=== PATIENT | male | born 1950 | race Caucasian/White ===

== ENCOUNTER 2017-08-31 11:56 | Inpatient (IN) | payer MEDICARE ==
[~2017-08-31 11:56] MED LIST: Lidocaine 1% PF 5 ML VIAL ONE; PHENYLEPHRINE-NS 100 MCG/ML 10 ML SYRINGE ONE; PROPOFOL 200 MG/20 ML VIAL ONE
[2017-08-31 12:43] LABS: #Basophils 0.1 thou/uL (0.0-0.2); #Eosinphils 0.1 thou/uL (0.0-0.7); #Lymphocytes 1.3 thou/uL (1.20-3.40); #Monocytes 0.8 thou/uL (0.11-0.59); #Neutrophils 11.5 thou/uL (1.40-6.50); %Basophils 0.5 % (0.0-1.0); %Eosinophils 0.5 % (0.0-10.0); %Lymphocytes 9.5 % (21.0-51.0); %Monocytes 5.7 % (0.0-10.0); %Neutrophils 83.8 % (42.0-75.0); Mean Corpuscular Hemoglobin 29.2 pg (27.0-31.0); Mean Corpuscular Volume 88.5 fl (80.0-94.0); Mean Platelet Volume 8.3 fL (7.4-10.4); Platelet Count 202 thou/uL (130-400); RBC Distribution Width 12.9 % (11.5-14.5); Red Blood Cell (RBC) Count 5.83 mill/uL (4.70-6.10); White Blood Cell (WBC) Count 13.8 thou/uL (4.8-10.8)
[2017-08-31 13:03] LABS: CRP (Inflammatory) 3.1 mg/dL (= or < 0.5); Uric Acid 6.3 mg/dL (3.5-7.2)
[2017-08-31 13:05] LABS: ALT (SGPT) 15 U/L (8-55); AST (SGOT) 15 U/L (5-34); Albumin 4.2 g/dL (3.4-4.8); Alkaline Phosphatase 100 U/L (40-150); Anion Gap 14 mmol/L (10-20); BUN (Urea Nitrogen) 16 mg/dL (8.4-25.7); Bilirubin, Total 0.7 mg/dL (0.2-1.2); Calc. Creatinine Clearance 0 mL/min (70-130); Calcium 9.8 mg/dL (7.8-10.44); Carbon Dioxide 24 mmol/L (23-31); Chloride 101 mmol/L (98-107); Estimated GFR-MDRD 49; Globulin 3.8 g/dL (2.4-3.5); Glucose 296 mg/dL (80-115); Sodium 136 mmol/L (136-145)
--- NOTE | 2017-08-31 13:11 | RAD ---
FOUR VIEWS RIGHT KNEE: CLINICAL HISTORY: Pain. FINDINGS: There is mild to moderate osteophytosis of the right knee with associated chondrocalcinosis. Patchy sclerosis was seen at the tibial tuberosity. There is mild joint capsular distention at the suprapat ellar bursa. No acute fracture. IMPRESSION: 1. 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 2. Heterogeneous density of the tibial tuberosity with corticated heterotopic densities which may re late to sequelae from prior avulsive injury. Correlate clinically. POS: ISABEL
[2017-08-31 13:12] LABS: Potassium 2.9 mmol/L (3.5-5.1)
[2017-08-31] MEDS ORDERED: Potassium Chloride 20 MEQ TAB ONE (14:25)
[2017-08-31 16:24] LABS: BF Color Red; Body Fluid Source SYNOVIAL FLUID; Clarity Cloudy/Turbid (Clear); RBC Background Count 0.005; RBC Count-Automated 138000 /cumm; Tube # EDTA; WBC Background Count 0.01; WBC/NonHematic-Auto 38600 /cumm
[2017-08-31] MEDS ORDERED: Morphine 4 MG/ML VIAL ONE (16:35)
[2017-08-31] MEDS ORDERED: Ondansetron ODT 4 MG TAB ONE (16:40)
[2017-08-31 16:50] LABS: Base Excess-Venous 1.5 mmol/L (0 (+/- 2.5)); Bicarbonate (HCO3v) 28.3 mmol/L (1.0-85.0); CO2 Tension (PvCO2) 50.7 mmHg (41.0-51.0); Calcium, Ionized 1.13 mmol/L (1.12-1.32); Hemoglobin - Calc 18.3 g/dL (12.0-18.0); O2 Tension (PvO2) 26.5 mmHg (35.0-45.0); Potassium 2.8 mmol/L (3.4-4.7); T. Carbon Dioxide 29.9 mmol/L (1.0-85.0); pH (Venous) 7.355 (7.35-7.45); vO2 Saturation-calc 45.3 % (94-98)
[2017-08-31 17:06] LABS: BF Segmented Neutrophils 78 %; Cell Count Non Hematic 13 %; Lymphocytes 9 %
[2017-08-31] MEDS ORDERED: Cefepime 2 GM VIAL ONE (17:59)
[2017-08-31] MEDS ORDERED: Vancomycin HCl 1.5 GM in Sodium Chloride 0.9% 250 ML 300 ML IVPB SCH (18:15)
[2017-08-31] MEDS ORDERED: Cefepime 2 GM in Sodium Chloride 0.9% 100 ML IVPB ONE (19:30)
[2017-08-31] MEDS ORDERED: Sodium Chloride 0.9% 1,000 ML IV SCH (20:34)
[2017-08-31] MEDS ORDERED: Ondansetron ODT 4 MG TAB SL PRN (20:34)
[2017-08-31] MEDS ORDERED: Acetaminophen 325 MG TAB PO PRN (20:34)
[2017-08-31] MEDS ORDERED: Ondansetron HCl/PF 4 MG/2 ML Vial IVP PRN (20:34)
[2017-08-31 21:09] VITALS: BMI 22.3
[2017-09-01] MEDS ORDERED: Ibuprofen 600 MG TAB PO PRN (01:59)
[2017-09-01] MEDS ORDERED: traMADol HCl 50 MG TAB PO PRN (02:00)
[2017-09-01] MEDS ORDERED: HYDROcodone/Acetaminophen 5/325 mg Tablet PO PRN (02:01)
[2017-09-01] MEDS ORDERED: Morphine 4 MG/ML VIAL SLOW IVP PRN (02:01)
[2017-09-01 02:44] LABS: Anion Gap 10 mmol/L (10-20); BUN (Urea Nitrogen) 13 mg/dL (8.4-25.7); Calc. Creatinine Clearance 64 mL/min (70-130); Calcium 8.5 mg/dL (7.8-10.44); Carbon Dioxide 24 mmol/L (23-31); Chloride 107 mmol/L (98-107); Estimated GFR-MDRD 65; Glucose 250 mg/dL (80-115); Sodium 138 mmol/L (136-145)
[2017-09-01 02:46] LABS: Potassium 2.9 mmol/L (3.5-5.1)
[2017-09-01] MEDS ORDERED: Potassium Chloride 20 MEQ TAB PO SCH (03:30)
[2017-09-01] MEDS ORDERED: Bupivacaine HCl 0.5%/Epinephrine 1:200,000/PF 30 ml Vial ONE (07:12)
[2017-09-01] MEDS ORDERED: Dextrose 5% in Water 1,000 ML IV PRN (07:37)
[2017-09-01] MEDS ORDERED: Zolpidem Tartrate 5 MG TAB PO PRN (07:37)
[2017-09-01] MEDS ORDERED: Dextrose 50% Abboject 50 ML SYRINGE SLOW IVP PRN (07:37)
[2017-09-01] MEDS ORDERED: Acetaminophen 325 MG TAB PO PRN (07:37)
[2017-09-01] MEDS ORDERED: Ondansetron ODT 4 MG TAB PO PRN (07:37)
[2017-09-01] MEDS ORDERED: Fentanyl 100 MCG/2 ML VIAL ONE (07:39)
[2017-09-01] MEDS ORDERED: Non-Formulary Item 1 EACH (Dulaglutide [Trulicity] 1.5 MG) SC SCH (07:45)
[2017-09-01] MEDS ORDERED: Levothyroxine Sodium 75 MCG TAB PO SCH (08:15)
[2017-09-01] MEDS ORDERED: Cefepime 2 GM in Sodium Chloride 0.9% 100 ML IVPB SCH (08:30)
[2017-09-01] MEDS ORDERED: Vancomycin HCl 1.5 GM in Sodium Chloride 0.9% 250 ML 300 ML IVPB SCH (08:30)
[2017-09-01 08:38] LABS: Potassium 3.3 mmol/L (3.5-5.1)
[2017-09-01] MEDS ORDERED: Non-Formulary Item 1 EACH (Dapagliflozin Propanediol [Farxiga] 10 MG) PO SCH (09:00)
[2017-09-01] MEDS ORDERED: TESTOSTERONE TOP SCH (09:00)
[2017-09-01] MEDS ORDERED: Promethazine HCl 25 MG/ML VIAL SLOW IVP PRN (09:33)
[2017-09-01] MEDS ORDERED: Promethazine HCl 25 MG/ML VIAL IM PRN (09:33)
[2017-09-01] MEDS ORDERED: Ondansetron HCl/PF 4 MG/2 ML Vial IVP PRN (09:33)
--- NOTE | 2017-09-01 09:47 | HP ---
DATE OF ADMISSION: 08/31/2017 HISTORY OF PRESENT ILLNESS: Mr. Damian is a 67-year-old white male, who states that he had no histo ry of trauma or increased activity, but on Sunday, he began having pain and swelling and some erythem a on the right knee. The patient has had no fever or chills. He has had increasing difficulty in am bulation, because of the pain; and decreased range of motion, because of the pain and swelling. The patient presented to the emergency room and seen by the emergency room physician, who performed an ar throcentesis, sent that fluid for culture and sensitivity. The patient has 38,000 white cells in the synovial fluid. He has no history of gout. He was admitted for possible septic arthritis of the ri ght knee and was started on antibiotics. PAST MEDICAL HISTORY/MEDICAL ILLNESSES: Type 2 diabetes, hypothyroidism, hypogonadism, hypertension, history of arrhythmia, history of CHF. PAST SURGICAL HISTORY: Right knee surgery when he was 25 years old, left shoulders replaced, and he has had a defibrillator placed. ALLERGIES: ERYTHROMYCIN. CURRENT MEDICATIONS: Levothyroxine and hydrochlorothiazide. PHYSICAL EXAMINATION: GENERAL: Patient is pleasant white male, alert, and oriented x3. VITAL SIGNS: Patient is afebrile, blood pressure 117/82, respiratory rate 17, pulse 69. HEENT EXAM: Unremarkable for age. Cranial nerves II-XII are grossly intact. NECK: Has good range of motion without pain. BACK: Thoracic and lumbar spines are nontender to palpation. LUNGS: Clear bilaterally. HEART: Regular rate and rhythm. ABDOMEN: Soft, nontender, bowel sounds positive. GENITOURINARY: Not done. EXTREMITIES EXAM: Remarkable for the right knee. Patient has a well-healed scar over the anterior-l ateral aspect of the right knee, which is approximately 9 inches in length. There is a large swellin g in the right knee, mild erythema around the knee. He has tenderness to touch around the knee. Ran ge of motion is 15-45 degrees. Right lower extremity is neurovascularly intact. IMAGING: X-rays of the right knee shows some arthritic changes with spurring, particularly in the la teral compartment, but also in the patellofemoral joint. There is a bony reaction on the anteromedia l aspect of the proximal tibia. No acute fractures are noted. There is some calcification of the me niscus consistent with pseudogout. IMPRESSION: 1. Possible septic arthritis of the right knee. 2. Diabetes mellitus. 3. History of congestive heart failure. 4. Hypothyroidism. 5. Cardiac arrhythmia. 6. Hypertension. PLAN: The patient started on IV antibiotics. We will see what the cultures show from the knee aspir ation. I will take the patient to the OR today for irrigation and debridement arthroscopically of th e right knee. Potential risks with the condition at surgery include but are not limited to infection , bleeding, pain, damage to blood vessels or nerves, continued pain, and indeed the patient may requi re additional surgery, DVT and PE formation. The patient's questions were answered and agreed to the procedure.
--- NOTE | 2017-09-01 10:20 | OP ---
DATE OF PROCEDURE: 09/01/2017 PREOPERATIVE DIAGNOSIS: Probable septic arthritis, right knee. POSTOPERATIVE DIAGNOSIS: Probable septic arthritis, right knee. PROCEDURE PERFORMED: Arthroscopic irrigation and debridement of the right knee. SURGEON: Shane Jackman M.D. ANESTHESIA: General. TECHNIQUE: The patient was taken to the operating room and placed in supine position. Satisfactory general anesthesia was performed. The right lower extremity was sterilely prepped and draped in usua l fashion. Two incisions were made, one anteromedial, one anterolateral for the regular arthroscopic incisions. A scope was inserted into the knee and a shaver was inserted into the other portal and t he knee joint was copiously irrigated with normal saline. A shaver was used to remove the fluid and for debridement of the knee joint. The patient did have arthritic changes, particularly in the later al compartment, some arthritic changes in the patellofemoral joint as well. He had a previous arthro centesis in the emergency room and fluids already in the lab for culture and sensitivity, so addition al culture and sensitivity were not obtained since the patient has already been on IV antibiotics as well. After the copious amount of fluid was irrigated through the knee joint, the instruments were r emoved. Quarter inch Marichuy drain was placed in one portal and out the other and one stitch was use d to make sure that the Marichuy drain stayed in place for additional drainage. A bulky sterile dress ing was applied, and the patient was awakened, extubated, and transferred to the recovery room in sta ble condition. ESTIMATED BLOOD LOSS: Minimal. COMPLICATIONS: None. TOURNIQUET TIME: There was no tourniquet time.
--- NOTE | 2017-09-01 11:15 | HP ---
PRIMARY CARE PROVIDER: Dr. Maria E Cadet. Referred to [facility] Service by [facility]. HISTORY OF PRESENT ILLNESS: The patient presents with acute 24 hours of right knee pain, swelling, r edness. He notes no fever or chills. No recent injury. He did have surgery on that knee at 25 year s of age after being kicked by some kind of animal. He has had no problems with it since that time. PAST MEDICAL HISTORY: He has a nonischemic cardiomyopathy. He has an AICD, diabetes mellitus type 2 , hypertension, dyslipidemia, low T syndrome. PAST SURGICAL HISTORY: Includes tonsillectomy, left shoulder surgery, first one in last December a revision and an implant 5 months ago. The aforementioned right knee surgery at 25 years of age. ALLERGIES: He is allergic to ERYTHROMYCIN. MEDICATIONS: Trulicity 1.5 weekly, sotalol 80 mg twice a day, Arimidex 1 mg a day, testosterone, speedy ipril 10 mg a day, aspirin 81 mg a day, glyburide 5 mg twice a day, Coreg 12.5 mg twice a day, Farxig a 10 mg a day, metformin 500 mg a day, hydrochlorothiazide 25 mg a day, levothyroxine 75 mcg a day. FAMILY HISTORY: Mother of old age at 94. Father of pancreatic CA at 75. There is no diab etes in the family. SOCIAL HISTORY: The patient is . FULL CODE status. , next of kin. No tobacco, no alcoh ol. REVIEW OF SYSTEMS: General: No headaches, dizziness or fainting. Eyes: No double vision, blurred vision, flashing lights. ENT: No ear pain or drainage. No nasal bleeding. No trouble swallowing. Cardiac: No chest pain, orthopnea or paroxysmal nocturnal dyspnea. Respiratory: No cough, wheezing or asthma. Gastrointestinal: He has loose stools, which he relates to metformin. He is on a low dose now. When he was on 2000 mg a day, he said his diarrhea was unbe arable. No abdominal pain, no nausea or vomiting, no blood in his stools. Genitourinary: No hematuria or dysuria. Musculoskeletal: See the present illness, otherwise no deon n or swelling in his arms or legs. Neurologic: No strokes, seizures or focal weakness. Psychiatric: No anxiety, depression. Skin: No bruising, bleeding or rash. He does have the rednes s and warmth over his right knee. Heme/Lymph: No tender or swollen lymph nodes in axilla, inguinal or cervical area. PHYSICAL EXAMINATION: GENERAL: He is an alert, pleasant, cooperative gentleman. VITAL SIGNS: Pulse 71, respirations 18, pulse ox 95 on room air, blood pressure 132/78, temperature 98.1. HEENT: Revealed pupils equal, round, and reactive to light. Extraocular movements are intact. Scle soto white. Tympanic membranes are clear. Nose is clear. Throat is clear. NECK: Supple, without jugular venous distention, adenopathy, thyromegaly or bruits. CHEST: Clear to auscultation and percussion. HEART: Had a regular rate and rhythm. First and second heart sounds are clear. There are no apprec iated murmurs or gallops. ABDOMEN: Soft, bowel sounds are normal. There is no hepatosplenomegaly, no mass, no rebound, no bru its. EXTREMITIES: Reveal no cyanosis, clubbing or edema. Examination of his right knee reveals a tender, swollen, erythematous, warm right knee. SKIN: See above, otherwise no rash or bruising. PULSES: Carotid, radial, femoral, and dorsalis pedis pulses intact and symmetric. HEME/LYMPH: No tender or swollen lymph nodes in axilla, inguinal or cervical area. NEUROLOGICAL: Cranial nerves II through XII are intact. Moves all extremities. Knee reflexes were not tested due to his inflamed right knee. LABORATORY DATA: White count 13.8 with a neutrophilia, hemoglobin 17.0, platelet count 202,000. A v enous blood gas was done. Chemistries: Sodium 138, potassium 2.9, chloride 107, creatinine 1.12, BU N 13, glucose 147-296. Uric acid 6.3. Liver function tests normal. Aspiration of the synovial flui d of the left knee, cloudy, turbid, red, 38,000 white cells, 138,000 red cells. Segmented neutrophil s 78%. Synovial fluid 244. IMAGING: No EKG is presented. No chest x-ray is presented. The patient is at this moment being tony en to surgery per Dr. Blandon. ADMITTING DIAGNOSES: 1. Septic arthritis, right knee. 2. Cardiomyopathy. 3. AICD. 4. Diabetes mellitus type 2. 5. Hypertension. 6. Hypothyroidism. 7. Low T syndrome. 8. Marked hypokalemia. PLAN: The patient is going to surgery, be taken to the telemetry postop. His medications will be re examined. He will need potassium replacement. I have advised to see your operating room nurse of blanche Hernandez and the need to continue beta sherry. No Lovenox due to surgery.
[2017-09-01] MEDS: Ramipril 5 MG CAP PO SCH (11:39)
[2017-09-01] MEDS: glyBURIDE 5 MG TAB PO SCH ×2 (11:40→21:38)
[2017-09-01] MEDS: Hydrochlorothiazide 25 MG TAB PO SCH (11:40)
[2017-09-01] MEDS: Sotalol HCl 80 MG TAB PO SCH ×2 (11:40→21:38)
[2017-09-01] MEDS: Carvedilol 6.25 MG TAB PO SCH ×2 (11:40→21:37)
[2017-09-01] MEDS: Anastrozole 1 MG TAB PO SCH (11:40)
[2017-09-01] MEDS: HYDROcodone/Acetaminophen 7.5/325 mg Tablet PO PRN (12:08)
[2017-09-01] MEDS: metFORMIN 500 MG TAB PO SCH (16:55)
[2017-09-01] MEDS: HumaLOG 300 UNITS/3 ML VIAL SC PRN (17:04)
[2017-09-01] MEDS: Cefepime 2 GM in Sodium Chloride 0.9% 100 ML IVPB SCH (21:37)
[2017-09-02 04:57] LABS: #Basophils 0.1 thou/uL (0.0-0.2); #Eosinphils 0.1 thou/uL (0.0-0.7); #Lymphocytes 1.6 thou/uL (1.20-3.40); #Neutrophils 7.2 thou/uL (1.40-6.50); %Basophils 0.5 % (0.0-1.0); %Eosinophils 0.7 % (0.0-10.0); %Lymphocytes 16.2 % (21.0-51.0); %Monocytes 9.9 % (0.0-10.0); %Neutrophils 72.7 % (42.0-75.0); Hemoglobin 13.8 g/dL (14.0-18.0); Mean Corpuscular HGB CONC 33.8 g/dL (32.0-36.0); Mean Corpuscular Hemoglobin 30.3 pg (27.0-31.0); Mean Corpuscular Volume 89.5 fl (80.0-94.0); Mean Platelet Volume 8.5 fL (7.4-10.4); Platelet Count 151 thou/uL (130-400); RBC Distribution Width 12.7 % (11.5-14.5); Red Blood Cell (RBC) Count 4.55 mill/uL (4.70-6.10); White Blood Cell (WBC) Count 9.9 thou/uL (4.8-10.8)
[2017-09-02] MEDS: Levothyroxine Sodium 75 MCG TAB PO SCH (05:04)
[2017-09-02 05:15] LABS: Anion Gap 12 mmol/L (10-20); BUN (Urea Nitrogen) 13 mg/dL (8.4-25.7); Calc. Creatinine Clearance 74 mL/min (70-130); Calcium 8.8 mg/dL (7.8-10.44); Carbon Dioxide 25 mmol/L (23-31); Chloride 104 mmol/L (98-107); Estimated GFR-MDRD 77; Glucose 145 mg/dL (80-115); Sodium 138 mmol/L (136-145)
[2017-09-02 05:31] LABS: Potassium 2.9 mmol/L (3.5-5.1)
[2017-09-02] MEDS ORDERED: Potassium Chloride 20 MEQ TAB PO SCH (06:00)
[2017-09-02] MEDS: Ramipril 5 MG CAP PO SCH (09:45)
[2017-09-02] MEDS: glyBURIDE 5 MG TAB PO SCH ×2 (09:45→21:12)
[2017-09-02] MEDS: Anastrozole 1 MG TAB PO SCH (09:45)
[2017-09-02] MEDS: Hydrochlorothiazide 25 MG TAB PO SCH (09:45)
[2017-09-02] MEDS: Aspirin 81 mg Enteric Coated Tablet PO SCH (09:45)
[2017-09-02] MEDS: Sotalol HCl 80 MG TAB PO SCH ×2 (09:46→21:13)
[2017-09-02] MEDS: Carvedilol 6.25 MG TAB PO SCH ×2 (09:46→21:13)
[2017-09-02] MEDS: Cefepime 2 GM in Sodium Chloride 0.9% 100 ML IVPB SCH ×2 (09:47→21:12)
[2017-09-02] MEDS: HYDROcodone/Acetaminophen 7.5/325 mg Tablet PO PRN (12:59)
[2017-09-02] MEDS: HumaLOG 300 UNITS/3 ML VIAL SC PRN ×2 (13:27→18:14)
--- NOTE | 2017-09-02 14:37 | PDOC.PN ---
- Subjective Encounter Start Date: 09/02/17 Encounter Start Time: 14:35 Patient seen and examined, no new issues or complaints, at bedside, all questions answered. - Objective Resuscitation Status: Resuscitation Status FULL:Full Resuscitation Vital Signs & Weight: Vital Signs (12 hours) Temp Pulse Resp BP BP Pulse Ox 09/02/17 12:00 97.9 F 70 17 118/64 93 L 09/02/17 09:46 69 112/58 L 09/02/17 09:45 112/58 L 09/02/17 08:00 97.7 F 69 18 112/58 L 94 L 09/02/17 04:00 74 16 111/64 Weight Admit Weight 155 lb 12.8 oz Weight 155 lb 12.8 oz I&O: 09/01/17 09/02/17 09/03/17 06:59 06:59 06:59 Intake Total 1207.5 1395 240 Output Total 550 651 Balance 657.5 744 240 Result Diagrams: 09/02/17 03:53 09/02/17 03:53 Additional Labs: Accuchecks 09/02/17 09/02/17 09/01/17 13:03 05:08 20:52 POC Glucose 393 H 142 H 283 H 09/01/17 17:03 POC Glucose 306 H Phys Exam - Physical Examination Constitutional: NAD HEENT: PERRLA, moist MMs, sclera anicteric Neck: no nodes, no JVD, supple Respiratory: no wheezing, no rales, no rhonchi Cardiovascular: RRR, no significant murmur, no rub Gastrointestinal: soft, non-tender, no distention Musculoskeletal: no edema, pulses present RLE in bandage Neurological: non-focal, normal sensation Psychiatric: normal affect, A&O x 3 Dx/Plan (1) Septic arthritis of knee, left Code(s): M00.9 - PYOGENIC ARTHRITIS, UNSPECIFIED Status: Acute (2) Cardiomyopathy Code(s): I42.9 - CARDIOMYOPATHY, UNSPECIFIED Status: Acute (3) Diabetes mellitus Code(s): E11.9 - TYPE 2 DIABETES MELLITUS WITHOUT COMPLICATIONS Status: Acute - Plan * s/p arthroscopy * consult ID for now, patient has >39K WBC in synovial fluid with 76% split being neutrophi, probability will he will need IV abx mcc but will consult ID to get a second opinion * continue current abx * cultures negative * case and plan d/w patient and at length, they understand and agree with this plan
--- NOTE | 2017-09-02 16:51 | PRG ---
DATE OF SERVICE: 09/02/2017 Mr. Damian states that he has some pain in the right knee, but is able to weightbear on the right lo wer extremity with minimal discomfort. He is in a knee immobilizer, which helps provide stability to the knee. The patient has been afebrile. Vital signs remain stable. Dressing is intact, and the r ight lower extremity is neurovascularly intact. All cultures both from the fluid of his knee joint a nd blood cultures have all been negative. No report on crystal in the right knee. Patient will cont inue with IV antibiotics. He may increase his activities with physical therapy helping. He may full y weightbear on the right lower extremity. We will check to see how his cultures are, keep him on IV antibiotics until cultures return. If they are negative, then probably we would be able to discharg e him at that point.
--- NOTE | 2017-09-02 17:11 | CON ---
DATE OF SERVICE: 09/02/2017 REASON FOR CONSULTATION: Right knee inflammatory arthropathy. HISTORY OF PRESENT ILLNESS: A 67-year-old patient appears to be the first admission to this hospital with a history of type 2 diabetes with cardiomyopathy which according to the patient was due to a vi ral infection with an AICD and chronic osteoarthritis and the recent disruption of the left shoulder which required surgical intervention, I believe in [place] and a history of 50-pound weight loss of u nclear etiology, who developed sudden onset of right knee inflammatory changes approximately 24 hours before admission. No headaches, no change in visual symptoms, sore throat, odynophagia, dysphagia, dyspnea, no cough. No reported fever or chills. No abdominal pain or diarrhea or genitourinary symp toms. PAST MEDICAL HISTORY: Cardiomyopathy, possible secondary to viral infection, AICD, type 2 diabetes, osteoarthritis, disruption of the left shoulder after a fall which required surgical intervention wit h joint replacement recently done in [place], hypertension, dyslipidemia, prostate cancer. PAST SURGICAL HISTORY: Tonsillectomy surgery noted above and a right knee arthroscopy done many deca rhett ago. ALLERGIES: ERYTHROMYCIN with mostly GI symptoms. CURRENT MEDICATIONS: Tylenol, Amber, Arimidex, Ecotrin, Coreg, cefepime, dextrose, glyburide, hydroc hlorothiazide, Humalog insulin, Synthroid, Glucophage, dulaglutide, dapagliflozin, testosterone, Zofr an, zolpidem. SOCIAL HISTORY: , retired, lives in [place]. Never a smoker, no alcoholic beverage use. PHYSICAL EXAMINATION: VITAL SIGNS: T-max 99.4, blood pressure 118/64, pulse 70, respirations 17. SKIN: Not remarkable except for the surgical ports for the arthroscopy right knee. No lymphadenopat hy. HEENT: Noncontributory. NECK: Supple. AICD pocket site is noninflamed. LUNGS: Symmetric clear breath sounds. HEART: S1, S2, without murmurs. ABDOMEN: Soft, nondistended or tender. Right knee with limitation of range of motion as expected. EXTREMITIES: Pulses 1+ dorsalis pedis. He has got palpable posterior tibialis as well. Cap refill is normal. Dried up skin in the feet with possible onychomycosis. NEUROLOGIC: Nonfocal. Cognitive function appears to be intact. LABORATORY DATA: White cell count 13.8 and 9.9, hemoglobin 17 and 13, MCV 88, platelets 202 with 82% neutrophils and now 72% and a sodium 138, creatinine 0.97, bilirubin 0.7. AST and ALT within normal limits. Alkaline phosphatase is within normal limits. C-reactive protein 3.10. Uric acid was 6.3, globulin 3.8. Synovial fluid, 38,000 WBCs, a predominance of mature neutrophils. The crystal arelis sis is pending. Microbiology thus far two sets of blood cultures, no growth and synovial fluid aspir ate thus far no growth. Gram stain, no organisms seen. Knee x-ray with a heterogeneous density of t he tibial tuberosity with corticated heterotopic densities probably related to prior avulsive injury and evidence of calcium pyrophosphate dihydrate deposition disease. ASSESSMENT: 1. History of type 2 diabetes with reportedly viral cardiomyopathy with automatic implantable cardio verter defibrillator in place. 2. Acute onset of right knee inflammatory changes. DISCUSSION: Differential diagnosis includes an infectious arthropathy versus noninfectious crystal d eposition disease related arthropathy or uric acid deposition arthropathy. In view of the radiologic al findings, CPPD is the more likely scenario here and the pathologist should be able to identify the crystals when he reports on the pathology of the synovial fluid. If that is the case, and if the cu ltures remain negative, then I would discontinue antimicrobial therapy and manage as a crystal deposi tion disease process. Otherwise, we will have to treat with antimicrobial therapy evidently if the c ultures turn positive. The synovial sample was obtained to initiation of antimicrobial therapy, so w e should be able to rely on it for decision making process.
[2017-09-02] MEDS: metFORMIN 500 MG TAB PO SCH (18:14)
[2017-09-03] MEDS: Levothyroxine Sodium 75 MCG TAB PO SCH (06:14)
[2017-09-03] MEDS ORDERED: Dextrose 5% in Water 1,000 ML IV PRN (08:31)
[2017-09-03] MEDS ORDERED: Dextrose 50% Abboject 50 ML SYRINGE SLOW IVP PRN (08:31)
[2017-09-03] MEDS: Sotalol HCl 80 MG TAB PO SCH ×2 (08:47→20:43)
[2017-09-03] MEDS: Aspirin 81 mg Enteric Coated Tablet PO SCH (08:48)
[2017-09-03] MEDS: Anastrozole 1 MG TAB PO SCH (08:48)
[2017-09-03] MEDS: Ramipril 5 MG CAP PO SCH (08:48)
[2017-09-03] MEDS: Hydrochlorothiazide 25 MG TAB PO SCH (08:48)
[2017-09-03] MEDS: Carvedilol 6.25 MG TAB PO SCH ×2 (08:48→20:43)
[2017-09-03 08:53] LABS: #Eosinphils 0.1 thou/uL (0.0-0.7); #Lymphocytes 1.5 thou/uL (1.20-3.40); #Monocytes 0.7 thou/uL (0.11-0.59); #Neutrophils 8.2 thou/uL (1.40-6.50); %Basophils 0.2 % (0.0-1.0); %Eosinophils 1.2 % (0.0-10.0); %Monocytes 6.9 % (0.0-10.0); %Neutrophils 77.8 % (42.0-75.0); Hemoglobin 14.4 g/dL (14.0-18.0); Mean Corpuscular Hemoglobin 28.9 pg (27.0-31.0); Mean Corpuscular Volume 90.4 fl (80.0-94.0); Platelet Count 229 thou/uL (130-400); RBC Distribution Width 12.6 % (11.5-14.5); Red Blood Cell (RBC) Count 4.98 mill/uL (4.70-6.10); White Blood Cell (WBC) Count 10.5 thou/uL (4.8-10.8)
[2017-09-03 09:11] LABS: Hemoglobin A1c 9.5 % (4.0-6.0)
[2017-09-03 09:12] LABS: Anion Gap 12 mmol/L (10-20); BUN (Urea Nitrogen) 14 mg/dL (8.4-25.7); Calc. Creatinine Clearance 60 mL/min (70-130); Carbon Dioxide 28 mmol/L (23-31); Chloride 100 mmol/L (98-107); Estimated GFR-MDRD 61; Glucose 284 mg/dL (80-115); Potassium 3.1 mmol/L (3.5-5.1); Sodium 137 mmol/L (136-145); Uric Acid 4.6 mg/dL (3.5-7.2)
[2017-09-03] MEDS: Cefepime 2 GM in Sodium Chloride 0.9% 100 ML IVPB SCH ×2 (12:38→23:47)
[2017-09-03] MEDS: HumaLOG 300 UNITS/3 ML VIAL SC PRN ×2 (12:39→17:36)
--- NOTE | 2017-09-03 14:29 | PDOC.PN ---
- Subjective Encounter Start Date: 09/03/17 Encounter Start Time: 10:00 Patient seen and examined, no new issues or complaints, no family at bedside, all questions answered. - Objective Resuscitation Status: Resuscitation Status FULL:Full Resuscitation Vital Signs & Weight: Vital Signs (12 hours) Temp Pulse Resp BP BP Pulse Ox 09/03/17 12:00 98.8 F 67 16 132/81 97 09/03/17 08:48 133/78 09/03/17 08:47 74 133/78 09/03/17 07:43 98.1 F 74 17 133/78 97 09/03/17 04:00 98.0 F 70 18 130/80 96 Weight Admit Weight 155 lb 12.8 oz Weight 156 lb 4 oz I&O: 09/02/17 09/03/17 09/04/17 06:59 06:59 06:59 Intake Total 1395 1420 240 Output Total 651 750 Balance 744 670 240 Result Diagrams: 09/03/17 08:37 09/03/17 08:37 Additional Labs: Accuchecks 09/03/17 09/03/17 09/02/17 11:40 05:37 20:21 POC Glucose 363 H 95 235 H 09/02/17 16:29 POC Glucose 317 H Phys Exam - Physical Examination Constitutional: NAD HEENT: PERRLA, moist MMs, sclera anicteric Neck: no nodes, no JVD, supple Respiratory: no wheezing, no rales, no rhonchi Cardiovascular: RRR, no significant murmur, no rub Gastrointestinal: soft, non-tender, no distention Musculoskeletal: no edema, pulses present RLE in brace Neurological: non-focal, normal sensation Psychiatric: normal affect, A&O x 3 Skin: no rash, normal turgor Dx/Plan (1) Septic arthritis of knee, left Code(s): M00.9 - PYOGENIC ARTHRITIS, UNSPECIFIED Status: Acute (2) Cardiomyopathy Code(s): I42.9 - CARDIOMYOPATHY, UNSPECIFIED Status: Acute (3) Diabetes mellitus Code(s): E11.9 - TYPE 2 DIABETES MELLITUS WITHOUT COMPLICATIONS Status: Acute - Plan * awaiting pathology results, if crystal arthropathy will treat accordingly if infectious will get PICC and assisted abx * Id following, ortho also following * will check urinc acid levels as well as synovial fluid uric acid levels * no other changes in plan for now from a renal perspective * case and plan d/w patient at [facility], no family at bedside, all questions answered.
[2017-09-03] MEDS ORDERED: metFORMIN 500 MG TAB PO SCH (21:00)
[2017-09-03] MEDS ORDERED: glyBURIDE 5 MG TAB PO SCH (21:30)
--- NOTE | 2017-09-04 00:58 | PRG ---
DATE OF SERVICE: 09/03/2017 SUBJECTIVE: Patient is a 2 days status post arthroscopic irrigation and debridement of the right kne e. He had dressing changed last night. He states his pain is decreasing. He is able to ambulate be tter. The Hospitalist and Infectious Disease doctor both on patient's case. OBJECTIVE: VITAL SIGNS: Patient has been afebrile. His last vital signs at noon today showed pulse of 67, respiratory rate 16, blood pressure 132/81, O2 saturation 97%. LABORATORY DATA: Cultures that were obtained on 08/31/2017 showed all blood cultures are negative an d the fluid aspirated from the right knee was also negative. CBC today showed white count 10.5, hemo globin 14.4, hematocrit 45. PLAN: Patient has drain in the right knee coming out through both portals, we will continue with thi s for at least a week. We will continue to watch to see what the cultures ultimately show, but leave the decision on whether he has antibiotics and which antibiotics to Dr. Sharma.
[2017-09-04] MEDS: Levothyroxine Sodium 75 MCG TAB PO SCH (06:36)
[2017-09-04] MEDS ORDERED: glyBURIDE 5 MG TAB PO SCH (08:00)
[2017-09-04 08:33] VITALS: BP 118/71; TEMP 97.7
[2017-09-04 09:15] LABS: #Eosinphils 0.1 thou/uL (0.0-0.7); #Lymphocytes 1.2 thou/uL (1.20-3.40); #Monocytes 0.5 thou/uL (0.11-0.59); #Neutrophils 6.8 thou/uL (1.40-6.50); %Basophils 0.4 % (0.0-1.0); %Eosinophils 0.9 % (0.0-10.0); %Lymphocytes 14.2 % (21.0-51.0); %Monocytes 6.1 % (0.0-10.0); %Neutrophils 78.3 % (42.0-75.0); Hemoglobin 14.2 g/dL (14.0-18.0); Mean Corpuscular HGB CONC 32.7 g/dL (32.0-36.0); Mean Corpuscular Hemoglobin 29.6 pg (27.0-31.0); Mean Corpuscular Volume 90.5 fl (80.0-94.0); Mean Platelet Volume 8.3 fL (7.4-10.4); Platelet Count 229 thou/uL (130-400); RBC Distribution Width 12.7 % (11.5-14.5); Red Blood Cell (RBC) Count 4.79 mill/uL (4.70-6.10); White Blood Cell (WBC) Count 8.6 thou/uL (4.8-10.8)
[2017-09-04 09:34] LABS: Anion Gap 13 mmol/L (10-20); BUN (Urea Nitrogen) 14 mg/dL (8.4-25.7); Calc. Creatinine Clearance 62 mL/min (70-130); Carbon Dioxide 27 mmol/L (23-31); Chloride 103 mmol/L (98-107); Estimated GFR-MDRD 63; Glucose 253 mg/dL (80-115); Potassium 3.1 mmol/L (3.5-5.1); Sodium 140 mmol/L (136-145)
[2017-09-04] MEDS: Hydrochlorothiazide 25 MG TAB PO SCH (10:12)
[2017-09-04] MEDS: Aspirin 81 mg Enteric Coated Tablet PO SCH (10:12)
[2017-09-04] MEDS: Ramipril 5 MG CAP PO SCH (10:12)
[2017-09-04] MEDS: Anastrozole 1 MG TAB PO SCH (10:12)
[2017-09-04] MEDS: Sotalol HCl 80 MG TAB PO SCH (10:13)
[2017-09-04] MEDS: Carvedilol 6.25 MG TAB PO SCH (10:13)
--- NOTE | 2017-09-04 11:08 | PDOC.EVN ---
Event Note - Event Note Event Note: DC SUMMARY #[id number]
--- NOTE | 2017-09-04 17:30 | DIS ---
DATE OF ADMISSION: 09/01/2017 DATE OF DISCHARGE: 09/04/2017 ADMITTING DIAGNOSES: Right knee pain and swelling, type 2 diabetes mellitus, hypothyroidism, hypogon adism, hypertension, history of arrhythmia, history of congestive heart failure. 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 HOSPITAL COURSE: This is a 67-year-old male who was admitted to the hospital because of pain that he started to have a few days prior to coming to the hospital. The patient was noted to not have any f marlin or chills, however, was noted to have a significantly swollen right knee. The patient had syno vial fluid analysis and aspiration done and was found to have 38,000 white blood cell count as well a s a 78% neutrophil shift. The patient on further pathological review and examination under polarized light was found to have scattered pseudogout and calcium pyrophosphate deposition disease. The jayda ent at the point in time of discharge was stable. Denied any nausea, vomiting, diarrhea, constipatio n, chest pain, fevers, chills or shortness of breath. The patient was throughout the admission afebr ile, did not have any spikes in white counts or any indications that he may have had any infection no peggy likely was all from his crystal arthropathy. The patient was evaluated by Orthopedics, Internal Medicine as well as Infectious Disease, was initially given antibiotics; however, these were disconti nued once crystal arthropathy was diagnosed. At the point in time in discharge, the patient again wa s noted to be stable and back to baseline, was to be discharged home. The patient was cleared for di mar by ID as well as Orthopedics prior to discharge. DISPOSITION: Home. ACTIVITY: As tolerated. FOLLOWUP: With PCP and Orthopedics within 1 week. CONDITION: Stable. PROGNOSIS: Good. DIET: Low fat, low calorie, high fiber diet. Case and plan discussed with the patient at length. He understands and agrees with this plan.
== END 2017-09-04 12:47 | disposition home or self-care (01) | DRG 554 ==
LOC: ERS 11:56 → T4-B 18:03 → 2NO 09-01 08:31 → ONC 09-03 17:58
PROVIDERS: ADMIT Internal Medicine; ATTEND Internal Medicine
PROC: 0S9C3ZZ Drainage of Right Knee Joint, Percutaneous Approach (ICD-10-PCS; 2017-08-31)
PROC: 3E1U38Z Irrigation of Joints using Irrigating Substance, Percutaneous Approach (ICD-10-PCS; principal; 2017-09-01)
DX: M11.861 Other specified crystal arthropathies, right knee (principal); I50.22 Chronic systolic (congestive) heart failure; I42.9 Cardiomyopathy, unspecified; I11.0 Hypertensive heart disease with heart failure; E11.9 Type 2 diabetes mellitus without complications; E78.5 Hyperlipidemia, unspecified; E03.9 Hypothyroidism, unspecified; E87.6 Hypokalemia; Z88.1 Allergy status to other antibiotic agents; Z79.84 Long term (current) use of oral hypoglycemic drugs; Z79.82 Long term (current) use of aspirin; Z79.899 Other long term (current) drug therapy; Z79.4 Long term (current) use of insulin; Z96.612 Presence of left artificial shoulder joint; Z95.810 Presence of automatic (implantable) cardiac defibrillator
CPT/HCPCS: 20610; 36415; 36416; 80048; 80053; 82330; 82803; 82945; 83036; 84550; 85025; 85060; 86140; 87040; 87070; 87205; 89051; 89060; 93005; 93010; 96365; 96366; 96375; A4216; G8978-GP-CJ; G8979-GP-CI; J0670; J0692; J2001; J2270; J2704; J3010; J3370; J7050; Q0162